=== PATIENT | female | born 1995 | race Caucasian/White ===

== ENCOUNTER 2018-02-03 12:38 | Emergency (ER) | payer BC ==
[2018-02-03] MEDS ORDERED: 0.9 % SODIUM CHLORIDE 1,000 ML BAG IV ONE (13:12)
--- NOTE | 2018-02-03 13:16 | Emergency Department Record ---
History of Present Illness - General Chief complaint: Vaginal bleeding Stated complaint: VAGINAL BLEEDING SINCE GIVING [id number] AGO Time Seen by Provider: 02/03/18 12:58 Source: Patient Mode of Arrival: Ambulatory Limitations: No limitations - History of Present Illness Initial comments: The patient is here due to vaginal spotting and intermittent bleeding since giving to her 2nd child on November 28 of this year. Presently the bleeding has slowed down and she is just spotting mildly. There is no reported AP, nausea, vomiting, or diarrhea. She has felt weak and mildly lightheaded at times. She was sent here by her OB due to possible retained products of conception. She also denies any ESPARZA, CP, SOB, or palpitations. MD Complaint: Vaginal bleeding, Other Onset/Timin -: Month(s) Patient : No Associated Symptoms: Vaginal bleeding, Weakness - Related Data Home Medications Medication Instructions Recorded Confirmed Last Taken Levothyroxine Sodium 75 mcg PO DAILY 02/03/18 02/03/18 Unknown Pnv No.95/Ferrous Fum/Folic AC 1 each PO DAILY 02/03/18 02/03/18 Unknown [ Formula] Sertraline HCl [Zoloft] 150 mg PO DAILY 02/03/18 02/03/18 Unknown Allergies Allergy/AdvReac Type Severity Reaction Status Date / Time cefaclor [From Ceclor] Allergy RASH Verified 02/03/18 12:53 Penicillins Allergy RASH Verified 02/03/18 12:53 Travel Screening - Travel/Exposure Within Last 30 Days Have you traveled within the last 30 days?: No Review of Systems Constitutional: Denies: Chills, Fever Eyes: Denies: Eye discharge ENT: Denies: Congestion Respiratory: Denies: Cough, Dyspnea Past Medical History - SOCIAL HISTORY Smoking Status: Never smoker Alcohol Use: Rare Drug Use: None - RESPIRATORY Hx Respiratory Disorders: No - CARDIOVASCULAR Hx Cardio Disorders: No - NEURO Hx Neuro Disorders: No - GI Hx GI Disorders: No - Hx Genitourinary Disorders: No - ENDOCRINE Hx Endocrine Disorders: Yes Hx Thyroid Disease: Yes - MUSCULOSKELETAL Hx Musculoskeletal Disorders: No - PSYCH Hx Psych Problems: No - HEMATOLOGY/ONCOLOGY Hx Hematology/Oncology Disorders: No Family Medical History Any Significant Family History?: No Physical Exam - General General Appearance: Alert, Oriented x3, Cooperative, No acute distress - Head Head exam: Atraumatic, Normocephalic, Normal inspection - Eye Eye exam: Normal appearance, PERRL - Neck Neck exam: Normal inspection, Full ROM. negative: Tenderness - Respiratory Respiratory exam: Normal lung sounds bilaterally. negative: Respiratory distress - Cardiovascular Cardiovascular Exam: Regular rate, Normal rhythm, Normal heart sounds - GI/Abdominal GI/Abdominal exam: Soft, Normal bowel sounds. negative: Guarding, Rebound, Rigid, Tenderness - Extremities Extremities exam: Normal inspection, Full ROM, Normal capillary refill. negative: Tenderness - Neurological Neurological exam: Alert, Normal gait. negative: Abnormal gait, Motor sensory deficit - Psychiatric Psychiatric exam: negative: Anxious Course Vital Signs 02/03/18 12:46 Temperature 98.0 F Pulse Rate 80 Respiratory 18 Rate Blood Pressure 140/81 Pulse Ox 99 - Reevaluation(s) Reevaluation #1: The patient is doing very well at this time. She denies any weakness or dizziness at this time. I did discuss the lab and US results and the need for F/ U with her [employer]OD [employer]IST[facility] doctor later this week. 02/03/18 15:55 Medical Decision Making - Data Complexity MDM Data: Labs Ordered and/or Reviewed, X-Ray Ordered and/or Reviewed - Lab Data Result diagrams: 02/03/18 13:00 02/03/18 13:00 - EKG Data -: EKG Interpreted by Me EKG: No Acute Changes, Normal EKG - Radiology Data Radiology results: Report reviewed (Pelvic US: neg for any acute abnormalities, Neg for products of conception.) Disposition Disposition: Discharge Clinical Impression: Menorrhagia with irregular cycle Disposition: Home, Self-Care Condition: (2) Stable Instructions: Menstruation (ED) Additional Instructions: Please see your BLOOD [employer]OR [employer]IT ASSISTANT doctor for recheck later this week. Please return to the ER for any worsening symptoms. Forms: Patient Portal Access Time of Disposition: 15:57 Quality - Quality Measures Quality Measures: N/A - Blood Pressure Screening View Details: Yes Does Patient Have Any of the Following: No Blood Pressure Classification: Pre-Hypertensive BP Reading Systolic Measurement: 123 Diastolic Measurement: 76 Screening for High Blood Pressure: < Pre-Hypertensive BP, F/U Documented > [ [id number]] Pre-Hypertensive Follow-up Interventions: Referral to alternative/primary care provider.
[2018-02-03 13:24] LABS: HEMATOCRIT 42.3 % (35.0-47.0); HEMOGLOBIN 14.2 gm/dl (11.6-16.0); MEAN CORPUSCULAR HEMOGLOBIN 31.6 pg (27-33); MEAN CORPUSCULAR HGB CONC 33.6 g/dl (32-36); MEAN PLATELET VOLUME 10.6 fl (7.4-10.4); PLATELET COUNT 198 K/uL (130-400); RED CELL DISTRIBUTION WIDTH 13.1 % (11.5-14.5); WHITE BLOOD COUNT W/O DIFF 4.7 K/uL (4.2-12.2)
[2018-02-03 13:38] LABS: BLOOD UREA NITROGEN 14 mg/dL (6-20); CREATININE 0.6 mg/dL (0.5-0.9); EST GLOMERULAR FILTRATION RATE > 60 mL/min
[2018-02-03 13:41] LABS: GLUCOSE,RANDOM 87 mg/dL (74-109)
[2018-02-03 13:44] LABS: ALB/GLOB RATIO 1.8 (1.1-1.8); ALBUMIN 4.5 g/dL (4.0-5.0); ALKALINE PHOSPHATASE 80 U/L (35-104); ALT/SGPT 14 U/L (<33); AST/SGOT 16 U/L (10.0-35.0)
== END 2018-02-03 16:07 | disposition home or self-care (01) ==
LOC: ER 12:38
DX: N92.1 Excessive and frequent menstruation with irregular cycle (principal); R53.1 Weakness; R42 Dizziness and giddiness; R19.7 Diarrhea, unspecified
CPT/HCPCS: 76830; 76856; 80053; 84703; 85027; 93005; 93010; 99284